=== PATIENT | female | born 2005 | race Caucasian/White ===

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

== ENCOUNTER 2024-01-07 13:05 | Emergency (ER) | payer OTHER ==
[2024-01-07 14:14] VITALS: RESP 18
[2024-01-07] MEDS: SODIUM CHLORIDE 0.9% 1,000 ML IV STA (14:36)
[2024-01-07] MEDS: KETOROLAC 15 MG/ML 1 ML VIAL IVP STA (14:37)
[2024-01-07 14:46] LABS: Basophils # (A) 0.1 k/uL (0-0.2); Basophils % (A) 1 %; Eosinophils # (A) 0.2 k/uL (0-0.7); Eosinophils % (A) 5 %; HCT 45.5 % (34.0-46.0); Lymphocytes # (A) 1.5 k/uL (1.0-4.8); Lymphocytes % (A) 30 %; MCH 30.1 pg (25.0-35.0); MCHC 32.9 g/dL (31.0-37.0); MCV 91.6 fL (80.0-100.0); Mean Platelet Volume 8.9; Monocytes # (A) 0.5 k/uL (0-1.0); Monocytes % (A) 11 %; Neutrophils # (A) 2.4 k/uL (1.3-7.7); Neutrophils % (A) 50 %; Platelet Count 193 k/uL (150-450); RBC 4.97 m/uL (3.80-5.40); RDW 12.1 % (11.5-15.5); WBC 4.9 k/uL (4.0-11.0)
[2024-01-07 14:55] LABS: Appearance,Urine Clear (Clear); Bilirubin,Urine Negative (Negative); Blood,Urine Moderate (Negative); Color,Urine Yellow; Glucose,Urine (UA) Negative (Negative); Ketones,Urine Negative (Negative); Leukocyte Esterase,Urine Trace (Negative); Mucus,Urine Many /hpf; Nitrite,Urine Negative (Negative); Protein,Urine 1+ (Negative); RBC,Urine 3 /hpf (0-5); Specific Gravity,Urine 1.027 (1.001-1.035); Squamous Epithelial Cell,Urine 5 /hpf (0-4); Urobilinogen,Urine <2.0 mg/dL (<2.0); WBC,Urine 3 /hpf (0-5)
[2024-01-07 15:00] LABS: ALT 14 U/L (4-34); AST 25 U/L (14-36); African American GFR (CKD) >90 (>60 ml/min/1.73 sqM); Albumin 4.3 g/dL (3.5-5.0); Alkaline Phosphatase 58 U/L (38-126); Anion Gap 7 mmol/L; Blood Urea Nitrogen 10 mg/dL (7-17); Calcium 9.6 mg/dL (8.4-10.2); Carbon Dioxide 24 mmol/L (22-30); Chloride 108 mmol/L (98-107); Glucose 88 mg/dL (74-99); Non-African American GFR(CKD) >90 (>60 ml/min/1.73 sqM); Potassium 4.2 mmol/L (3.5-5.1); Sodium 139 mmol/L (137-145); Total Bilirubin 0.8 mg/dL (0.2-1.3); Total Protein 7.7 g/dL (6.3-8.2)
--- NOTE | 2024-01-07 16:18 | US ---
EXAMINATION TYPE: US pelvic complete DATE OF EXAM: 01/07/2024 COMPARISON: NONE CLINICAL INDICATION: Female, 18 years old with history of RLQ ab pain, started menses today; pelvic p ain, Hx heavy irregular menses TECHNIQUE: Transabdominal (TA). Transabdominal sonographic images of the pelvis were acquired. Pat ient could not tolerate insertion of TV probe Date of LMP: 01/07/24 EXAM MEASUREMENTS: Uterus: 7.5x3.1x4.8 cm Endometrial Stripe: not visualized Right Ovary: 2.7x1.7x2.0cm cm Left Ovary: not visualized 1. Uterus: Anteverted wnl, as visualized 2. Endometrium: not visualized well 3. Right Ovary: wnl as visualized 4. Left Ovary: Obscured by overlying bowel gas Spectral, color and waveform doppler imaging shows good arterial and venous flow within the right o vary; there is no evidence for ovarian torsion. 5. Bilateral Adnexa: Obscured by overlying bowel gas 6. Posterior cul-de-sac: wnl exam extremely limited due to bowel gas and undistended bladder. Pt. unable to tolerate TV exam. IMPRESSION: Limited study. No discrete abnormality appreciated at this time.
--- NOTE | 2024-01-07 16:29 | ED ---
Abdominal Pain HPI - General Chief Complaint: Abdominal Pain Stated Complaint: Abdominal Pain Time Seen by Provider: 01/07/24 13:15 Source: patient, RN notes reviewed Mode of arrival: ambulatory Limitations: no limitations - History of Present Illness Initial Comments: 18-year-old female presents emergency department accompanied by father with chief complaint of pelvic pain and vaginal bleeding. Patient states that she began her menstrual cycle this morning which is heavier than her normal with reported 8/10 pelvic pain and pressure. Patient states that she recently changed to a combined oral contraceptive containing estrogen, and her implantable contraceptive was removed. Patient states that she has heavy menstrual cycles been experiencing severe abdominal and pelvic pain since starting the new contraceptive. she denies Dysuria, flank pain, fevers, lightheaded, dizziness. She denies possibility of . - Related Data Allergies Allergy/AdvReac Type Severity Reaction Status Date / Time No Known Allergies Allergy Verified 01/07/24 13:42 Review of Systems ROS Statement: Those systems with pertinent positive or pertinent negative responses have been documented in the HPI. ROS Other: All systems not noted in ROS Statement are negative. Past Medical History Past Medical History: Asthma History of Any Multi-Drug Resistant Organisms: None Reported Past Surgical History: No Surgical Hx Reported Past Psychological History: No Psychological Hx Reported, ADD/ADHD, Anxiety, Depression Smoking Status: Never smoker Past Alcohol Use History: None Reported Past Drug Use History: None Reported General Exam Limitations: no limitations General appearance: alert, in no apparent distress Head exam: Present: atraumatic, normocephalic, normal inspection Eye exam: Present: normal appearance, PERRL, EOMI. Absent: scleral icterus, conjunctival injection, periorbital swelling ENT exam: Present: normal exam, mucous membranes moist Neck exam: Present: normal inspection. Absent: tenderness, meningismus, lymphadenopathy Respiratory exam: Present: normal lung sounds bilaterally. Absent: respiratory distress, wheezes, rales, rhonchi, stridor Cardiovascular Exam: Present: regular rate, normal rhythm, normal heart sounds. Absent: systolic murmur, diastolic murmur, rubs, gallop, clicks GI/Abdominal exam: Present: soft, tenderness (suprapubic), normal bowel sounds. Absent: distended, guarding, rebound, rigid Extremities exam: Present: normal inspection, full ROM, normal capillary refill. Absent: tenderness, pedal edema, joint swelling, calf tenderness Back exam: Present: normal inspection Neurological exam: Present: alert, oriented X3, CN II-XII intact Psychiatric exam: Present: normal affect, normal mood Skin exam: Present: warm, dry, intact, normal color. Absent: rash Course Vital Signs 01/07/24 01/07/24 13:38 16:38 Temperature 98.4 F 98.8 F Pulse Rate 73 71 Respiratory 18 18 Rate Blood Pressure 102/71 104/67 O2 Sat by Pulse 98 98 Oximetry Medical Decision Making - Medical Decision Making Was pt. sent in by a medical professional or institution (, PA, ELEVATOR INSTALLER, urgent care, hospital, or [facility]...) When possible be specific @ -No Did you speak to anyone other than the patient for history (EMS, parent, family, police, friend...)? What history was obtained from this source @ -No Did you review nursing and triage notes (agree or disagree)? Why? @ -I reviewed and agree with nursing and triage notes Were old charts reviewed (outside hosp., previous admission, EMS record, old EKG, old radiological studies, urgent care reports/EKG's, [facility] records)? Report findings @ -No old charts were reviewed Differential Diagnosis (chest pain, altered mental status, abdominal pain women, abdominal pain men, vaginal bleeding, weakness, fever, dyspnea, syncope, headache, dizziness, GI bleed, back pain, seizure, CVA, palpatations, mental health, musculoskeletal)? @ -Differential Vaginal Bleeding: Spontaneous , threatened , molar , ectopic , bloody show, incompetent cervix, abruptioplacenta, placenta previa, uterine rupture, dysfunctional uterine bleeding, hemorrhage, uterine fibroids, this is not meant to be an all-inclusive list. EKG interpreted by me (3pts min.). @ -None X-rays interpreted by me (1pt min.). @ -None CT interpreted by me (1pt min.). @ -None done U/S interpreted by me (1pt. min.). @ -pelvic ultrasound revealed and reported is a limited study with no acute abnormality seen. no acute changes of the ovaries noted or thickening of the endometrium What testing was considered but not performed or refused? (CT, X-rays, U/S, labs)? Why? @ -None What meds were considered but not given or refused? Why? @ -None Did you discuss the management of the patient with other professionals (professionals i.e. , [facility], ELEVATOR INSTALLER, lab, RT, psych nurse, child welfare social worker, senior solutions consultant, teacher, weapons electrical engineering officer, caser up)? Give summary @ -No Was smoking cessation discussed for >3mins.? @ -No Was critical care preformed (if so, how long)? @ -No Were there social determinants of health that impacted care today? How? (Homelessness, low income, unemployed, alcoholism, drug addiction, transportation, low edu. Level, literacy, decrease access to med. care, detention, rehab)? @ -No Was there de-escalation of care discussed even if they declined (Discuss DNR or withdrawal of care, Hospice)? DNR status @ -No What co-morbidities impacted this encounter? (DM, HTN, Smoking, COPD, CAD, Cancer, CVA, ARF, Chemo, Hep., AIDS, mental health diagnosis, sleep apnea, morbid obesity)? @ -None Was patient admitted / discharged? Hospital course, mention meds given and route, prescriptions, significant lab abnormalities, going to OR and other pertinent info. @ -Discharged.18-year-old female with complaint of pelvic pain and heavy menstrual cycle. Physical exam patient was found to have tenderness of the RLQ without rigidity or rebound. Will obtain blood work to monitor for signs of infection, patient ordered for pelvic ultrasound for further evaluation. The pa tient was given a liter fluid bolus and Toradol for pain relief. Laboratory results unremarkable for signs of infection or electrolyte abnormalities. Patient's urine negative for signs of infection, hCG negative. Ultrasound no acute abnormalities located in the pelvis. Patient states that her abdominal pain has markedly improved since arrival to the ED. At this time, discussed with patient that symptoms are likely secondary to new oral contraceptive, and painful menstruation. Educated patient to take NSAIDs for symptomatic relief and follow-up with [facility] for further management. Undiagnosed new problem with uncertain prognosis? @ -No Drug Therapy requiring intensive monitoring for toxicity (Heparin, Nitro, Insulin, Cardizem)? @ -No Were any procedures done? @ -No Diagnosis/symptom? @ vaginal bleeding, painful menstrual cycle, pelvic pain Acute, or Chronic, or Acute on Chronic? @ -acute Uncomplicated (without systemic symptoms) or Complicated (systemic symptoms)? @ -uncomplicated Side effects of treatment? @ -No Exacerbation, Progression, or Severe Exacerbation? @ -No Poses a threat to life or bodily function? How? (Chest pain, USA, [place], pneumonia, PE, COPD, DKA, ARF, appy, cholecystitis, CVA, Diverticulitis, Homicidal, Suicidal, threat to staff... and all critical care pts) @ -No - Lab Data Result diagrams: 01/07/24 14:35 01/07/24 14:35 Lab Results 01/07/24 01/07/24 01/07/24 Range/Units 14:35 14:35 14:35 WBC 4.9 (4.0-11.0) k/uL RBC 4.97 (3.80-5.40) m/uL Hgb 15.0 (11.4-16.0) gm/dL Hct 45.5 (34.0-46.0) % MCV 91.6 (80.0-100.0) fL MCH 30.1 (25.0-35.0) pg MCHC 32.9 (31.0-37.0) g/dL RDW 12.1 (11.5-15.5) % Plt Count 193 (150-450) k/uL MPV 8.9 Neutrophils % 50 % Lymphocytes % 30 % Monocytes % 11 % Eosinophils % 5 % Basophils % 1 % Neutrophils # 2.4 (1.3-7.7) k/uL Lymphocytes # 1.5 (1.0-4.8) k/uL Monocytes # 0.5 (0-1.0) k/uL Eosinophils # 0.2 (0-0.7) k/uL Basophils # 0.1 (0-0.2) k/uL Sodium (137-145) mmol/L Potassium (3.5-5.1) mmol/L Chloride (98-107) mmol/L Carbon Dioxide (22-30) mmol/L Anion Gap mmol/L BUN (7-17) mg/dL Creatinine (0.52-1.04) mg/dL Est GFR (CKD-EPI)AfAm (>60 ml/min/1.73 sqM) Est GFR (CKD-EPI)NonAf (>60 ml/min/1.73 sqM) Glucose (74-99) mg/dL Calcium (8.4-10.2) mg/dL Total Bilirubin (0.2-1.3) mg/dL AST (14-36) U/L ALT (4-34) U/L Alkaline Phosphatase (38-126) U/L Total Protein (6.3-8.2) g/dL Albumin (3.5-5.0) g/dL Urine Color Yellow Urine Appearance Clear (Clear) Urine pH 6.0 (5.0-8.0) Ur Specific [place] 1.027 (1.001-1.035) Urine Protein 1+ H (Negative) Urine Glucose (UA) Negative (Negative) Urine Ketones Negative (Negative) Urine Blood Moderate H (Negative) Urine Nitrite Negative (Negative) Urine Bilirubin Negative (Negative) Urine Urobilinogen <2.0 (<2.0) mg/dL Ur Leukocyte Esterase Trace H (Negative) Urine RBC 3 (0-5) /hpf Urine WBC 3 (0-5) /hpf Ur Squamous Epith Cells 5 H (0-4) /hpf Urine Mucus Many H (None) /hpf Urine HCG, Qual Not Detected (Not Detectd) 01/07/24 Range/Units 14:35 WBC (4.0-11.0) k/uL RBC (3.80-5.40) m/uL Hgb (11.4-16.0) gm/dL Hct (34.0-46.0) % MCV (80.0-100.0) fL MCH (25.0-35.0) pg MCHC (31.0-37.0) g/dL RDW (11.5-15.5) % Plt Count (150-450) k/uL MPV Neutrophils % % Lymphocytes % % Monocytes % % Eosinophils % % Basophils % % Neutrophils # (1.3-7.7) k/uL Lymphocytes # (1.0-4.8) k/uL Monocytes # (0-1.0) k/uL Eosinophils # (0-0.7) k/uL Basophils # (0-0.2) k/uL Sodium 139 (137-145) mmol/L Potassium 4.2 (3.5-5.1) mmol/L Chloride 108 H (98-107) mmol/L Carbon Dioxide 24 (22-30) mmol/L Anion Gap 7 mmol/L BUN 10 (7-17) mg/dL Creatinine 0.58 (0.52-1.04) mg/dL Est GFR (CKD-EPI)AfAm >90 (>60 ml/min/1.73 sqM) Est GFR (CKD-EPI)NonAf >90 (>60 ml/min/1.73 sqM) Glucose 88 (74-99) mg/dL Calcium 9.6 (8.4-10.2) mg/dL Total Bilirubin 0.8 (0.2-1.3) mg/dL AST 25 (14-36) U/L ALT 14 (4-34) U/L Alkaline Phosphatase 58 (38-126) U/L Total Protein 7.7 (6.3-8.2) g/dL Albumin 4.3 (3.5-5.0) g/dL Urine Color Urine Appearance (Clear) Urine pH (5.0-8.0) Ur Specific [place] (1.001-1.035) Urine Protein (Negative) Urine Glucose (UA) (Negative) Urine Ketones (Negative) Urine Blood (Negative) Urine Nitrite (Negative) Urine Bilirubin (Negative) Urine Urobilinogen (<2.0) mg/dL Ur Leukocyte Esterase (Negative) Urine RBC (0-5) /hpf Urine WBC (0-5) /hpf Ur Squamous Epith Cells (0-4) /hpf Urine Mucus (None) /hpf Urine HCG, Qual (Not Detectd) Disposition Clinical Impression: Painful menstrual flow Narrative: Please return to the Emergency Department if symptoms worsen or any other concerns. Ibuprofen, Motrin, Advil at home for symptomatic relief due to menstrual cycle. Disposition: HOME SELF-CARE Condition: Good Instructions (If sedation given, give patient instructions): Menorrhagia (ED) Is patient prescribed a controlled substance at d/c from ED?: No Referrals: Mahnaz Mccormick MD [Primary Care Provider] - 1-2 days Time of Disposition: 16:34
[2024-01-07 16:51] VITALS: BP 104/67; PULSE 71; TEMP 98.8
== END 2024-01-07 16:45 | disposition home or self-care (01) ==
LOC: EC 13:05 → MERGE 13:05 → EC 16:45
DX: N94.6 Dysmenorrhea, unspecified (principal)
CPT/HCPCS: 36415; 80053; 85025; 81001; 81025; 93976; 76856; 99284; 96374; 96361; J1885

== ENCOUNTER 2024-04-11 07:45 | Emergency (ER) | payer OTHER ==
[2024-04-11] MEDS: SODIUM CHLORIDE 0.9% 1,000 ML IV STA (08:16)
--- NOTE | 2024-04-11 08:16 | ED ---
General Adult HPI - General Chief complaint: Syncope Stated complaint: Syncope Time Seen by Provider: 04/11/24 07:55 Source: patient, RN notes reviewed Mode of arrival: wheelchair Limitations: no limitations - History of Present Illness Initial comments: 18-year-old female presents emergency department chief complaint of syncopal episode. Patient states she passed out twice this morning states she gets hot flash and some tunnel vision prior to this. Patient does admit that she has been having issues with dizziness and she is scheduled for tilt table test. Patient is on medications for vertigo, chronic headaches. Patient denies any chest pain or shortness of breath currently nausea or vomiting states has been trying to eat and drinking well denies any recent vomiting. Denies any chance of . - Related Data Allergies Allergy/AdvReac Type Severity Reaction Status Date / Time No Known Allergies Allergy Verified 04/11/24 07:51 Review of Systems ROS Statement: Those systems with pertinent positive or pertinent negative responses have been documented in the HPI. ROS Other: All systems not noted in ROS Statement are negative. Past Medical History Past Medical History: Asthma History of Any Multi-Drug Resistant Organisms: None Reported Past Surgical History: No Surgical Hx Reported Past Psychological History: ADD/ADHD, Anxiety, Depression, No Psychological Hx Reported Smoking Status: Never smoker Past Alcohol Use History: None Reported Past Drug Use History: None Reported General Exam Limitations: no limitations General appearance: alert, in no apparent distress Head exam: Present: atraumatic, normocephalic, normal inspection ENT exam: Present: normal exam, mucous membranes moist Neck exam: Present: normal inspection, full ROM. Absent: tenderness, meningismus, lymphadenopathy Respiratory exam: Present: normal lung sounds bilaterally. Absent: respiratory distress, wheezes, rales, rhonchi, stridor Cardiovascular Exam: Present: regular rate, normal rhythm, normal heart sounds. Absent: systolic murmur, diastolic murmur, rubs, gallop, clicks GI/Abdominal exam: Present: soft, normal bowel sounds. Absent: distended, tenderness, guarding, rebound, rigid Neurological exam: Present: alert, oriented X3, CN II-XII intact Psychiatric exam: Present: normal affect, normal mood Course Vital Signs 04/11/24 04/11/24 04/11/24 07:49 08:22 08:35 Temperature 97.8 F Pulse Rate 84 Pulse Rate [ 77 77 Right Pulse Oximetery] Respiratory 16 16 16 Rate Blood Pressure 86/60 Blood Pressure [Right Arm Sitting] Blood Pressure [Right Arm Standing] Blood Pressure 104/65 105/69 [Right Arm Supine] O2 Sat by Pulse 99 100 100 Oximetry 04/11/24 04/11/24 04/11/24 08:36 08:39 10:50 Temperature 98.5 F Pulse Rate 93 Pulse Rate [ 79 82 Right Pulse Oximetery] Respiratory 16 18 16 Rate Blood Pressure 107/69 Blood Pressure 110/76 [Right Arm Sitting] Blood Pressure 112/76 [Right Arm Standing] Blood Pressure [Right Arm Supine] O2 Sat by Pulse 100 100 99 Oximetry EKG Findings - EKG Comments: EKG Findings:: EKG performed at 7: 57 sinus rhythm rate of 75 WI 155 QRS 75 QT/QTc 396/425 - EKG Results: EKG: interpreted by WILLY Medical Decision Making - Medical Decision Making Was pt. sent in by a medical professional or institution (, PA, IT WEB DEVELOPMENT CONSULTANT, urgent care, hospital, or half-way...) When possible be specific @ -No Did you speak to anyone other than the patient for history (EMS, parent, family, police, friend...)? What history was obtained from this source @ -No Did you review nursing and triage notes (agree or disagree)? Why? @ -I reviewed and agree with nursing and triage notes Were old charts reviewed (outside hosp., previous admission, EMS record, old EKG, old radiological studies, urgent care reports/EKG's, half-way records)? Report findings @ -No old charts were reviewed Differential Diagnosis (chest pain, altered mental status, abdominal pain women, abdominal pain men, vaginal bleeding, weakness, fever, dyspnea, syncope, headache, dizziness, GI bleed, back pain, seizure, CVA, palpatations, mental health, musculoskeletal)? @ -Differential Syncope: Valvular disease, hypertrophic cardiomyopathy, pulmonary embolism, tamponade, tachycardia, bradycardia, HI, hypovolemia, hemorrhage, dissection, anemia, intracranial hemorrhage, seizure, hypoglycemia, carbon monoxide poisoning, this is not meant to be an all-inclusive list. EKG interpreted by me (3pts min.). @ -As above X-rays interpreted by me (1pt min.). @ -None done CT interpreted by me (1pt min.). @ -None done U/S interpreted by me (1pt. min.). @ -None done What testing was considered but not performed or refused? (CT, X-rays, U/S, labs)? Why? @ -None What meds were considered but not given or refused? Why? @ -None Did you discuss the management of the patient with other professionals (professionals i.e. , PA, IT WEB DEVELOPMENT CONSULTANT, lab, RT, psych nurse, social media specialist, senior national account manager, teacher, postal sorting officer, special education case manager)? Give summary @ -No Was smoking cessation discussed for >3mins.? @ -No Was critical care preformed (if so, how long)? @ -No Were there social determinants of health that impacted care today? How? (Homelessness, low income, unemployed, alcoholism, drug addiction, transportation, low edu. Level, literacy, decrease access to med. care, prison, rehab)? @ -No Was there de-escalation of care discussed even if they declined (Discuss DNR or withdrawal of care, Hospice)? DNR status @ -No What co-morbidities impacted this encounter? (DM, HTN, Smoking, COPD, CAD, Cancer, CVA, ARF, Chemo, Hep., AIDS, mental health diagnosis, sleep apnea, morbid obesity)? @ -None Was patient admitted / discharged? Hospital course, mention meds given and route, prescriptions, significant lab abnormalities, going to OR and other perti nent info. @ -Charge patient feels greatly improved after IV fluids. Symptoms have resolved. Patient's workup is negative there is some concern that this may be caused by her propranolol she is scheduled for tilt table test with cardiology. We discussed return parameters Undiagnosed new problem with uncertain prognosis? @ -No Drug Therapy requiring intensive monitoring for toxicity (Heparin, Nitro, Insulin, Cardizem)? @ -No Were any procedures done? @ -No Diagnosis/symptom? @ -Syncope Acute, or Chronic, or Acute on Chronic? @ -Acute Uncomplicated (without systemic symptoms) or Complicated (systemic symptoms)? @ -Uncomplicated Side effects of treatment? @ -No Exacerbation, Progression, or Severe Exacerbation? @ -No Poses a threat to life or bodily function? How? (Chest pain, USA, HI, pneumonia, PE, COPD, DKA, ARF, appy, cholecystitis, CVA, Diverticulitis, Homicidal, Suicidal, threat to staff... and all critical care pts) @ -No - Lab Data Result diagrams: 04/11/24 08:11 04/11/24 08:11 Lab Results 04/11/24 04/11/24 04/11/24 Range/Units 08:11 08:11 08:11 WBC 7.6 (4.0-11.0) k/uL RBC 4.42 (3.80-5.40) m/uL Hgb 13.2 (11.4-16.0) gm/dL Hct 40.6 (34.0-46.0) % MCV 92.0 (80.0-100.0) fL MCH 29.8 (25.0-35.0) pg MCHC 32.4 (31.0-37.0) g/dL RDW 12.1 (11.5-15.5) % Plt Count 191 (150-450) k/uL MPV 9.7 Neutrophils % 64 % Lymphocytes % 24 % Monocytes % 8 % Eosinophils % 3 % Basophils % 1 % Neutrophils # 4.8 (1.3-7.7) k/uL Lymphocytes # 1.8 (1.0-4.8) k/uL Monocytes # 0.6 (0-1.0) k/uL Eosinophils # 0.2 (0-0.7) k/uL Basophils # 0.0 (0-0.2) k/uL Sodium 137 (137-145) mmol/L Potassium 4.4 (3.5-5.1) mmol/L Chloride 111 H (98-107) mmol/L Carbon Dioxide 22 (22-30) mmol/L Anion Gap 4 mmol/L BUN 11 (7-17) mg/dL Creatinine 0.54 (0.52-1.04) mg/dL Est GFR (CKD-EPI)AfAm >90 (>60 ml/min/1.73 sqM) Est GFR (CKD-EPI)NonAf >90 (>60 ml/min/1.73 sqM) Glucose 84 (74-99) mg/dL Calcium 8.7 (8.4-10.2) mg/dL Magnesium 1.7 (1.6-2.3) mg/dL Total Bilirubin 0.5 (0.2-1.3) mg/dL AST 30 (14-36) U/L ALT 14 (4-34) U/L Alkaline Phosphatase 50 (38-126) U/L Troponin I <0.012 (0.000-0.034) ng/mL Total Protein 6.3 (6.3-8.2) g/dL Albumin 3.6 (3.5-5.0) g/dL Urine Color Urine Appearance (Clear) Urine pH (5.0-8.0) Ur Specific [place] (1.001-1.035) Urine Protein (Negative) Urine Glucose (UA) (Negative) Urine Ketones (Negative) Urine Blood (Negative) Urine Nitrite (Negative) Urine Bilirubin (Negative) Urine Urobilinogen (<2.0) mg/dL Ur Leukocyte Esterase (Negative) Urine RBC (0-5) /hpf Urine WBC (0-5) /hpf Ur Squamous Epith Cells (0-4) /hpf Urine Bacteria (None) /hpf Urine Mucus (None) /hpf Urine HCG, Qual (Not Detectd) 04/11/24 04/11/24 Range/Units 08:11 08:11 WBC (4.0-11.0) k/uL RBC (3.80-5.40) m/uL Hgb (11.4-16.0) gm/dL Hct (34.0-46.0) % MCV (80.0-100.0) fL MCH (25.0-35.0) pg MCHC (31.0-37.0) g/dL RDW (11.5-15.5) % Plt Count (150-450) k/uL MPV Neutrophils % % Lymphocytes % % Monocytes % % Eosinophils % % Basophils % % Neutrophils # (1.3-7.7) k/uL Lymphocytes # (1.0-4.8) k/uL Monocytes # (0-1.0) k/uL Eosinophils # (0-0.7) k/uL Basophils # (0-0.2) k/uL Sodium (137-145) mmol/L Potassium (3.5-5.1) mmol/L Chloride (98-107) mmol/L Carbon Dioxide (22-30) mmol/L Anion Gap mmol/L BUN (7-17) mg/dL Creatinine (0.52-1.04) mg/dL Est GFR (CKD-EPI)AfAm (>60 ml/min/1.73 sqM) Est GFR (CKD-EPI)NonAf (>60 ml/min/1.73 sqM) Glucose (74-99) mg/dL Calcium (8.4-10.2) mg/dL Magnesium (1.6-2.3) mg/dL Total Bilirubin (0.2-1.3) mg/dL AST (14-36) U/L ALT (4-34) U/L Alkaline Phosphatase (38-126) U/L Troponin I (0.000-0.034) ng/mL Total Protein (6.3-8.2) g/dL Albumin (3.5-5.0) g/dL Urine Color Colorless Urine Appearance Cloudy H (Clear) Urine pH 6.0 (5.0-8.0) Ur Specific [place] 1.010 (1.001-1.035) Urine Protein Negative (Negative) Urine Glucose (UA) Negative (Negative) Urine Ketones Negative (Negative) Urine Blood Negative (Negative) Urine Nitrite Negative (Negative) Urine Bilirubin Negative (Negative) Urine Urobilinogen <2.0 (<2.0) mg/dL Ur Leukocyte Esterase Moderate H (Negative) Urine RBC 2 (0-5) /hpf Urine WBC 6 H (0-5) /hpf Ur Squamous Epith Cells 6 H (0-4) /hpf Urine Bacteria Rare H (None) /hpf Urine Mucus Few H (None) /hpf Urine HCG, Qual Not Detected (Not Detectd) Disposition Clinical Impression: Vasovagal syncope Disposition: HOME SELF-CARE Condition: Stable Instructions (If sedation given, give patient instructions): Syncope (ED) Additional Instructions: Please return to the Emergency Department if symptoms worsen or any other concerns. Is patient prescribed a controlled substance at d/c from ED?: No Referrals: Mahnaz Mccormick MD [Primary Care Provider] - 1-2 days Time of Disposition: 10:40
[2024-04-11] MEDS: SODIUM CHLORIDE 0.9% 500 ML 500 ML IV STA (08:17)
[2024-04-11 08:42] LABS: Basophils % (A) 1 %; Eosinophils # (A) 0.2 k/uL (0-0.7); Eosinophils % (A) 3 %; HCT 40.6 % (34.0-46.0); HGB 13.2 gm/dL (11.4-16.0); Lymphocytes # (A) 1.8 k/uL (1.0-4.8); Lymphocytes % (A) 24 %; MCH 29.8 pg (25.0-35.0); MCHC 32.4 g/dL (31.0-37.0); Mean Platelet Volume 9.7; Monocytes # (A) 0.6 k/uL (0-1.0); Monocytes % (A) 8 %; Neutrophils # (A) 4.8 k/uL (1.3-7.7); Neutrophils % (A) 64 %; Platelet Count 191 k/uL (150-450); RBC 4.42 m/uL (3.80-5.40); RDW 12.1 % (11.5-15.5); WBC 7.6 k/uL (4.0-11.0)
[2024-04-11 08:56] LABS: ALT 14 U/L (4-34); AST 30 U/L (14-36); African American GFR (CKD) >90 (>60 ml/min/1.73 sqM); Albumin 3.6 g/dL (3.5-5.0); Alkaline Phosphatase 50 U/L (38-126); Anion Gap 4 mmol/L; Blood Urea Nitrogen 11 mg/dL (7-17); Calcium 8.7 mg/dL (8.4-10.2); Carbon Dioxide 22 mmol/L (22-30); Chloride 111 mmol/L (98-107); Glucose 84 mg/dL (74-99); Magnesium 1.7 mg/dL (1.6-2.3); Non-African American GFR(CKD) >90 (>60 ml/min/1.73 sqM); Potassium 4.4 mmol/L (3.5-5.1); Sodium 137 mmol/L (137-145); Total Bilirubin 0.5 mg/dL (0.2-1.3); Total Protein 6.3 g/dL (6.3-8.2)
[2024-04-11 10:31] LABS: Appearance,Urine Cloudy (Clear); Bacteria,Urine Rare /hpf; Bilirubin,Urine Negative (Negative); Blood,Urine Negative (Negative); Color,Urine Colorless; Glucose,Urine (UA) Negative (Negative); Ketones,Urine Negative (Negative); Leukocyte Esterase,Urine Moderate (Negative); Mucus,Urine Few /hpf; Nitrite,Urine Negative (Negative); Protein,Urine Negative (Negative); RBC,Urine 2 /hpf (0-5); Squamous Epithelial Cell,Urine 6 /hpf (0-4); Urobilinogen,Urine <2.0 mg/dL (<2.0); WBC,Urine 6 /hpf (0-5)
[2024-04-11 10:51] VITALS: BP 107/69; PULSE 93; RESP 16; TEMP 98.5
== END 2024-04-11 10:50 | disposition home or self-care (01) ==
LOC: EC 07:45
DX: R55 Syncope and collapse (principal)
CPT/HCPCS: 36415; 80053; 81001; 81025; 83735; 84484; 85025; 93005; 96360; 96361; 99284

== ENCOUNTER 2024-05-29 06:27 | Day surgery (SDC) | payer OTHER ==
[2024-05-29 06:59] VITALS: BP 134/77; PULSE 62; RESP 18; TEMP 98.4
[2024-05-29] MEDS: SODIUM CHLORIDE 0.9% 1,000 ML IV SCH (06:59)
[2024-05-29] MEDS: IV FLUID CONTINUATION 1,000 ML IV ONE (06:59)
[2024-05-29 08:27] LABS: Amorphous Sediment,Urine Moderate /hpf; Appearance,Urine Turbid (Clear); Bacteria,Urine Few /hpf; Bilirubin,Urine Negative (Negative); Blood,Urine Trace (Negative); Color,Urine Yellow; Glucose,Urine (UA) Negative (Negative); Hyaline Casts,Urine 10 /lpf (0-2); Ketones,Urine Negative (Negative); Leukocyte Esterase,Urine Large (Negative); Mucus,Urine Many /hpf; Nitrite,Urine Negative (Negative); Protein,Urine 2+ (Negative); RBC,Urine 7 /hpf (0-5); Specific Gravity,Urine 1.026 (1.001-1.035); Squamous Epithelial Cell,Urine 36 /hpf (0-4); Urobilinogen,Urine <2.0 mg/dL (<2.0); WBC,Urine 46 /hpf (0-5)
--- NOTE | 2024-05-29 15:46 | P.EPPROC ---
- EP Procedure Note Electrophysiology Procedure Note: Diagnosis Recurrent episodes of apparent altered consciousness The episode that was witnessed by me in my office was psychogenic syncope with normal heart rates Twelve-lead EKG Sinus rhythm normal FL narrow QRS normal ST segments normal QT interval No delta waves, no epsilon waves no QT prolongation Tilt table test per protocol Baseline blood pressure 114/74 mmHg, baseline heart rate between 80 to 90 bpm sinus mechanism Patient was tilted upright from angle of 70 degrees per protocol Within 14 minutes the patient complained of muscle weakness facial numbness Central headache struggling to breathe Her head seem to fall forwards, she did not respond to verbal commands Her heart rate was in the 80s and her blood pressure was normal 119/79 mmHg This was confirmed with clear site continuous noninvasive BP monitoring as she appeared to lose consciousness She was laid supine without any change in heart rate or blood pressure Impression Normal twelve-lead EKG Normal heart rate and blood pressure response to upright tilting even in the presence of apparent altered consciousness Final diagnosis Psychogenic syncope
== END 2024-05-29 08:40 | disposition home or self-care (01) ==
LOC: CATHEP 06:27
PROVIDERS: ATTEND Internal Medicine Clinical Cardiac Electrophysiology
DX: R55 Syncope and collapse
CPT/HCPCS: 81001; 81025; 93660

== ENCOUNTER → 2025-03-07 | Outpatient (CLI) | payer OTHER ==
--- NOTE | 2025-03-11 12:38 | CT ---
EXAMINATION TYPE: CT abdomen pelvis w con DATE OF EXAM: 03/07/2025 1:26 PM COMPARISON: None. CLINICAL INDICATION: Female, 19 years old with history of R10.84 GEN ABD PAIN, low abd pain TECHNIQUE: Axial images were obtained from above the diaphragm to the pubic rami in the axial plane a t 5 mm thick sections. Reconstructed images are reviewed on the computer in the coronal plane. CONTRAST: 100 mL of Isovue 300. Study performed with Oral Contrast DLP: 865 mGycm, Automated exposure control for dose reduction was used. FINDINGS: Limited CT sections are obtained the lung bases. The lung bases are clear. CT ABDOMEN: Liver: Normal Spleen: Normal Pancreas: Normal Adrenal glands: The adrenal glands are normal. Gallbladder: Normal Kidneys: No masses are evident. No hydronephrosis is present. No cysts are present. Delayed images were obtained through the kidneys, which remain unremarkable. Aorta: Normal Inferior vena cava: Normal. CT PELVIS: Loops of bowel within the abdomen and pelvis are normal. There is some mild fecal retention. There are loops of bowel which are incompletely distended or lack oral contrast limiting their evaluation. Appendix: Normal as visualized. Urinary bladder: Normal. Genitourinary structures: Uterus and adnexa appear normal Osseous structures: No suspicious lytic or sclerotic lesions. IMPRESSION: 1. No suspicious acute abnormality to account for lower abdominal pain [facility], , 03/11/2025 12:36 PM
== END | disposition home or self-care (01) ==
LOC: RADCTMAIN 10:43
PROVIDERS: ATTEND Family Medicine
DX: R10.84 Generalized abdominal pain (principal)
CPT/HCPCS: 74177; Q9967

== ENCOUNTER 2025-04-08 04:23 | Emergency (ER) | payer OTHER ==
--- NOTE | 2025-04-08 06:55 | XR ---
EXAMINATION TYPE: XR chest 2V DATE OF EXAM: 04/08/2025 6:38 AM COMPARISON: None CLINICAL INDICATION: Female, 19 years old with history of post-procedure pain; [facility] TECHNIQUE: XR chest 2V Frontal and lateral views of the chest. FINDINGS: Lungs/Pleura: There is no evidence of pleural effusion, focal consolidation, or pneumothorax. Pulmonary vascularity: Unremarkable. Heart/mediastinum: Cardiomediastinal silhouette is unremarkable. Musculoskeletal: No acute osseous pathology. electronic leads project over the left neck. Other findings: None IMPRESSION: No acute cardiopulmonary disease/process. [facility], , 04/08/2025 6:53 AM
--- NOTE | 2025-04-08 06:59 | XR ---
EXAMINATION TYPE: XR soft tissue neck DATE OF EXAM: 04/08/2025 6:38 AM COMPARISON: None CLINICAL INDICATION: Female, 19 years old with history of post-procedure pain; [facility] TECHNIQUE: The soft tissues of the neck were imaged in frontal and lateral views. FINDINGS: The prevertebral soft tissues are unremarkable. There is no evidence of mass effect or trac heal deviation. No acute osseous abnormality demonstrated. No evidence of subglottic narrowing. The tract leads project over the neck. No subcutaneous gas identified. IMPRESSION: No significant abnormality identified within the soft tissues of the neck. [facility], , 04/08/2025 6:57 AM
[2025-04-08 07:01] VITALS: TEMP 98
--- NOTE | 2025-04-08 07:15 | ED ---
General Adult HPI - General Chief complaint: Seizure Stated complaint: Seizures Time Seen by Provider: 04/08/25 06:01 Source: patient Mode of arrival: EMS Limitations: no limitations - History of Present Illness Initial comments: This patient is a 19-year-old woman with history of partial seizures who had recent vagal nerve stimulator implanted. The patient states that she had a seizure tonight while she was sitting at a table. Her seizures consist of brief loss of consciousness. She states that when she had the seizure she bumped her head. She complains of moderate headache. She has not noted worsening or relieving factors. Patient also concerned that there may have been some movement of the nerve stimulator on the chest wall. She denies other injury. No other symptoms. -: minutes(s) Location: head Radiation: non-radiation Severity scale (1-10): 8 Quality: dull Consistency: constant Improves with: none Worsens with: none Associated Symptoms: denies other symptoms Treatments Prior to Arrival: none - Related Data Home Medications Medication Instructions Recorded Confirmed Atomoxetine HCl [Strattera] 40 mg PO DAILY 05/29/24 05/29/24 Levonorgestrel/Ethin.estradiol 1 tab PO DAILY 05/29/24 05/29/24 [Levonorgestrel/Ethin.estradiol Triphasic] Loratadine 10 mg PO DAILY 05/29/24 05/29/24 Meclizine [Antivert] 25 mg PO TID PRN 05/29/24 05/29/24 Omeprazole 20 mg PO DAILY 05/29/24 05/29/24 Topiramate [Topiramate ER] 25 mg PO DAILY PRN 05/29/24 05/29/24 Vortioxetine Hydrobromide 10 mg PO DAILY 05/29/24 05/29/24 [Trintellix] Allergies Allergy/AdvReac Type Severity Reaction Status Date / Time No Known Allergies Allergy Verified 04/08/25 04:36 Review of Systems ROS Statement: Those systems with pertinent positive or pertinent negative responses have been documented in the HPI. ROS Other: All systems not noted in ROS Statement are negative. Constitutional: Denies: fever, chills, weakness Eyes: Denies: vision change ENT: Denies: ear pain Respiratory: Denies: cough, dyspnea Cardiovascular: Denies: chest pain, palpitations, edema Gastrointestinal: Denies: abdominal pain, nausea, vomiting, diarrhea Genitourinary: Denies: dysuria, hematuria Musculoskeletal: Denies: back pain Skin: Denies: rash Neurological: Reports: headache. Denies: weakness, numbness, paresthesias, confusion Hematological/Lymphatic: Denies: easy bleeding Past Medical History Past Medical History: Asthma History of Any Multi-Drug Resistant Organisms: None Reported Past Surgical History: No Surgical Hx Reported Past Psychological History: ADD/ADHD, Anxiety, Depression, No Psychological Hx Reported Smoking Status: Never smoker Past Alcohol Use History: None Reported Past Drug Use History: None Reported General Exam Limitations: no limitations General appearance: alert, in no apparent distress Head exam: Present: atraumatic, normocephalic Eye exam: Present: normal appearance. Absent: scleral icterus, conjunctival injection ENT exam: Present: normal oropharynx, mucous membranes moist Neck exam: Present: normal inspection, full ROM. Absent: tenderness, meningismus Respiratory exam: Present: normal lung sounds bilaterally. Absent: respiratory distress, wheezes, rales, rhonchi, stridor, accessory muscle use Cardiovascular Exam: Present: regular rate, normal rhythm, normal heart sounds, other (The patient's vagal nerve stimulator unit has normal chest wall appearance. No erythema, warmth, drainage.). Absent: systolic murmur, diastolic murmur, rubs, gallop GI/Abdominal exam: Present: soft. Absent: distended, tenderness, guarding, rebound, rigid, mass Extremities exam: Present: normal inspection, normal capillary refill. Absent: pedal edema, calf tenderness Back exam: Present: normal inspection. Absent: vertebral tenderness Neurological exam: Present: alert, oriented X3, CN II-XII intact. Absent: motor sensory deficit Skin exam: Present: warm, dry, intact, normal color. Absent: rash Course Vital Signs 04/08/25 04/08/25 04/08/25 04:30 06:59 07:42 Temperature 98.4 F 98 F 98 F Pulse Rate 96 90 85 Respiratory 18 15 18 Rate Blood Pressure 136/89 135/97 133/93 O2 Sat by Pulse 96 100 100 Oximetry Medical Decision Making - Medical Decision Making X-ray of the chest and soft tissue neck were obtained which do not show any abnormality of the vagal nerve leads. Was pt. sent in by a medical professional or institution (, PA, PROJECT ASSOCIATE, urgent care, hospital, or fdc...) When possible be specific @ -[No] Did you speak to anyone other than the patient for history (EMS, parent, family, police, friend...)? What history was obtained from this source @ -[The patient's family member did contribute history Did you review nursing and triage notes (agree or disagree)? Why? @ -[I reviewed and agree with nursing and triage notes] Were old charts reviewed (outside hosp., previous admission, EMS record, old EKG, old radiological studies, urgent care reports/EKG's, fdc records)? Report findings @ -[Yes, old charts were reviewed] Differential Diagnosis (chest pain, altered mental status, abdominal pain women, abdominal pain men, vaginal bleeding, weakness, fever, dyspnea, syncope, headache, dizziness, GI bleed, back pain, seizure, CVA, palpatations, mental health, musculoskeletal)? @ -[Differential Seizure: Recurrent seizure disorder, febrile seizure, alcohol withdrawal, stimulants, meningitis, encephalitis, intercranial hemorrhage, intracranial tumor, stroke, eclampsia, thyrotoxicosis, hypocalcemia, hyponatremia, hypernatremia, hypomagnesemia, psychogenic, this is not meant to be an all-inclusive list. Differential Headache: Migraine, tension, cluster, carbon monoxide, central venous thrombosis, pension karma temporal arteritis, acute closure glaucoma, intercranial hemorrhage, mastoiditis, sinusitis, head injury, this is not meant to be an all-inclusive list. EKG interpreted by me (3pts min.). @ -[As above] X-rays interpreted by me (1pt min.). @ -[I interpreted as above CT interpreted by me (1pt min.). @ -[None done] U/S interpreted by me (1pt. min.). @ -[None done] What testing was considered but not performed or refused? (CT, X-rays, U/S, labs)? Why? @ -[None] What meds were considered but not given or refused? Why? @ -[None] Did you discuss the management of the patient with other professionals (professionals i.e. , PA, PROJECT ASSOCIATE, lab, RT, psych nurse, social insurance adviser, license registration examiner, teacher, alumni relations officer, classification case manager)? Give summary @ -[No] Was smoking cessation discussed for >3mins.? @ -[No] Was critical care preformed (if so, how long)? @ -[No] Were there social determinants of health that impacted care today? How? (Homelessness, low income, unemployed, alcoholism, drug addiction, transportation, low edu. Level, literacy, decrease access to med. care, half-way, rehab)? @ -[No] Was there de-escalation of care discussed even if they declined (Discuss DNR or withdrawal of care, Hospice)? DNR status @ -[No] What co-morbidities impacted this encounter? (DM, HTN, Smoking, COPD, CAD, Cancer, CVA, ARF, Chemo, Hep., AIDS, mental health diagnosis, sleep apnea, morbid obesity)? @ -Seizure disorder Was patient admitted / discharged? Hospital course, mention meds given and route, prescriptions, significant lab abnormalities, going to OR and other pertinent info. @ -[Patient is a 19-year-old woman here after having had a partial seizure at home. The patient does have frequent seizures and for that reason had vagal nerve stimulator implanted. The patient without neurologic deficits here. She did feel better following analgesic and stable to go home and follow-up with her neurologist. Undiagnosed new problem with uncertain prognosis? @ -[No] Drug Therapy requiring intensive monitoring for toxicity (Heparin, Nitro, Insulin, Cardizem)? @ -[No] Were any procedures done? @ -[No] Diagnosis/symptom? @ -[Acute seizure in patient with seizure disorder Headache Acute, or Chronic, or Acute on Chronic? @ -[Acute Uncomplicated (without systemic symptoms) or Complicated (systemic symptoms)? @ -[Uncomplicated Side effects of treatment? @ -[No] Exacerbation, Progression, or Severe Exacerbation? @ -[No] Poses a threat to life or bodily function? How? (Chest pain, [place], [place], pneumonia, PE, COPD, DKA, ARF, appy, cholecystitis, CVA, Diverticulitis, Homicidal, Suicidal, threat to staff... and all critical care pts) @ -[No] All treatments are based on ideal body weight as in ED triage Disposition Clinical Impression: Chest pain, Migraine Disposition: HOME SELF-CARE Condition: Good Instructions (If sedation given, give patient instructions): Chest Pain (ED), Migraine Headache (ED) Is patient prescribed a controlled substance at d/c from ED?: No Referrals: Mahnaz Mccormick MD [Primary Care Provider] - 1-2 days
[2025-04-08] MEDS: METOCLOPRAMIDE 5 MG/ML 2 ML VIAL IM STA (07:32)
[2025-04-08] MEDS: diphenhydrAMINE 50 MG/ML 1 ML VIAL IM STA (07:37)
[2025-04-08 07:46] VITALS: BP 133/93; PULSE 85; RESP 18
== END 2025-04-08 07:46 | disposition home or self-care (01) ==
LOC: EC 04:23
DX: G43.909 Migraine, unspecified, not intractable, without status migrainosus (principal); R07.9 Chest pain, unspecified; G40.909 Epilepsy, unspecified, not intractable, without status epilepticus
CPT/HCPCS: 70360; 71046; 99284; 96372 ×2; J1200; J2765